=== PATIENT | male | born 1985 | race Caucasian/White ===

== ENCOUNTER 2025-07-13 00:59 | Day surgery (SDC) | payer BC, SELFPAY ==
--- NOTE | 2025-07-06 14:22 | SUR.PREOP ---
Addendum entered by Ailyn Michaels RN 07/06/25 14:49: Surgery time change to 07/13/25 at 1500. Be here at 1400. Pt notified.-frandy Original Note: [facility] has started construction of its new state of the art ER which will open Spring 2026. With this, we anticipate parking may be a challenge for some our surgical patients and families. Parking spaces are limited but are available for all Surgical, obstetrics, and ER patients sharing this lot. If you arrive and find you are having a hard time finding a parking space, please note that we understand the challenges, please drive around the hospital and park near Hospital Entrance 1. When you enter this entrance, you can ask a volunteer to direct or take you back to the surgical waiting area to check in. We appreciate everyone?s understanding of these expected challenges while we build for your future. Report to the Outpatient Waiting Room, entrance under the green pavilion located off [facility], at time _3pm_ on date _07/13/25 . Planned Procedure Time: __4pm__.? Time changes happen often and if your time is changed the preop area will call you the afternoon before. - You and your visitor will be asked to self-screen and do not enter if you have any COVID symptoms. Please call surgeon if you need to reschedule. - A mask is optional within the hospital at this time. Patients may have a light meal before procedure however do not eat or drink anything 2 hours prior to surgery. Take only the following medications with a SIP of water on the morning of surgery: All normal meds DO NOT STOP ANY OF YOUR OTHER PRESCRIPTION MEDICATIONS PRIOR TO SURGERY EXCEPT THE FOLLOWING Hold all vitamins and supplements for 3 days per anesthesiologist. Medications to discontinue per physician __none__ Date to take last dose____n/a Please no make-up, nail azeri, hairspray, perfume, deodorant, or body powder the day of surgery.? No jewelry (including any body piercings) or valuables the day of surgery, leave them at home.? Please take a shower or bath the night before, or the morning of, surgery with an antibacterial soap.? Wear comfortable, loose fitting clothing.?. - Jewelry must be removed prior to entering the operating room.? Rings and piercings that are not removed may be cut off. - The hospital will not accept responsibility for valuables.? - Please leave all valuables, including medications, at home the day of surgery. If you are going home after surgery, a licensed pizza delivery driver must drive you home.? - NO public transportation without another adult if you receive anesthesia. - We recommend that an adult stay with you for 24 hours following discharge. - We also recommend that you do not drive, make important decision, drink alcoholic beverages, or take any drugs that were not prescribed by your health care provider for at least 24 hours after your discharge time. Follow any additional instructions given to you from your surgeon. Telephone instructions given to __Eric and asked if any additional questions and then verbalized understanding. Patient advised to call surgeon office or pre surgery nurse liaison [phone] if any additional questions.
[2025-07-06 14:25] VITALS: BMI 29.2
--- NOTE | ~2025-07-13 | XR_ITS ---
XR fluoroscopy no charge Indication:left L4-5, L5-S1 transforaminal epidural injection TECHNIQUE: Fluoroscopy used during left L4-5, L5-S1 transforaminal epidural injection performed by [Milan Villasenor MD] on 07/13/2025. 17 seconds of fluoroscopy with 57 fluoroscopic images captured. FINDINGS: Correlate with procedure note. IMPRESSION: Fluoroscopy used during left L4-5, L5-S1 transforaminal epidural injection. Reviewed, dictated and finalized at location O. IMPRESSION: Fluoroscopy used during left L4-5, L5-S1 transforaminal epidural in jection.
[2025-07-13 13:30] VITALS: BP 132/90; PULSE 95; RESP 16; TEMP 37.1; O2SAT 97
--- NOTE | 2025-07-13 13:40 | P.HP_ITS ---
History of Present Illness History of Present Illness Consent: Risks, benefits, and alternatives have been discussed and questions answered. Patient agrees to proceed with procedure. Chief complaint: lumbosacral radiculopathy Narrative: Ciro Warren is a 39 year old male with chronic, recalcitrant and disabling left lumbosacral back and lower extremity pain secondary to lumbosacral radiculopathy with failure to respond to aggressive conservative measures inc luding PT, oral and topical analgesics, opioid and nonopioid analgesics, rest, time and activity/behavioral modification over the past 1-2 years who presents for lumbar transforaminal epidural steroid injection of the left L4-5, L5-S1 levels under fluoroscopic guidance and with contrast control. Review of Systems Review of Systems: All systems reviewed & are unremarkable except as noted in HPI and below PMFSH Past Medical History Medical History (Updated 04/09/25 @ 08:44 by Leo Mclaughlin, SOHAIL) Lumbar stenosis Dorsalgia Lumbar spondylosis Lumbar radiculopathy Chronic headaches Allergies Social History Social History (Updated 04/09/25 @ 08:13 by Elina Frank MA) Smoking status: Current every day smoker Tobacco type: e-cigarettes/vaping Additional smoking assessment comments: 2-3wks ago vaping is are. Alcohol intake: current Drinks per week: 2 Substance use: never Substance use type: does not use Living arrangements: with family Spiritual care concerns: No Meds Home Medications and Allergies Home Medications ?Medication ?Instructions ?Recorded ?Confirmed ?Type lisinopril 20 mg tablet 20 mg PO DAILY 04/09/2506/24 History cetirizine 10 mg tablet (24Hour 10 mg PO DAILY PRN all ergy symptoms 06/23/25 07/06/25 History Allergy) Allergies Allergy/AdvReac Type Severity Reaction Status Date / Time erythromycin base Allergy Intermediate Unknown Verified 07/06/25 14:24 penicillin G Allergy Intermediate Unknown Verified 07/06/25 14:24 Exam Narrative: The patient's physical exam is essentially unchanged from prior examination on 04/09/25. Specifically, patient demonstrates normal lung capacity, tidal volume and respiratory rate without wheezes, crackles, rales or rubs. Heart rate and rhythm are regular without murmurs, gallops or rubs. No JVD. Pulses 2+ globally without increasing peripheral edema. AAOx3 with no evidence of confusion, intoxication or altered mental state, NC/AT without acute distress or altered consciousness. Speech, cognition, mood, insight and judgment at baseline and w ithin normal limits. Assessment and Plan Assessment and plan (1) Lumbar radiculopathy: Code(s): M54.16 - Radiculopathy, lumbar region Status: Acute Assessment and Plan: proceed as planned with lumbar transforaminal epidural steroid injection of the left L4-5, L5-S1 levels under fluoroscopic guidance and with contrast control. (2) Lumbar stenosis: Code(s): M48.061 - Spinal stenosis, lumbar region without neurogenic claudication Status: Acute
--- NOTE | 2025-07-13 13:43 | WPDHPUPDATE1 ---
History and Physical Update Update Date/Time: 07/13/25 13:43 History and Physical has been reviewed, including an updated exam of the patient. There are NO changes in the patient's condition. Risks, benefits, and alternatives have been discussed and questions answered. Patient agrees to proceed with procedure.
--- NOTE | 2025-07-13 13:44 | W.PM.PROC2 ---
Procedure Note - Detailed Date of Procedure 07/13/25 Pre-op Diagnosis lumbosacral radiculopathy Post-op Diagnosis Same Procedure Performed Left Lumbar Transforaminal Epidural Steroid Injection under Fluoroscopic Guidance and with Contrast Control at L4-5, L5-S1. Surgeon Milan Villasenor MD Anesthesia Local Description of Procedure INFORMED CONSENT: Risks, benefits and alternatives to the procedure were discussed in detail with the patient who expressed explicit understanding and consent to proceed. Patient was informed verbally and in written form regarding the risks associated with the procedure including the low risk of serious infection, bleeding/bruising, allergic reaction, nerve or organ injury, paralysis, procedural site pain or discomfort, worsening pain and/or mobility, failure to treat and/or disfigurement. The patient expressed explicit understanding and consent to proceed. All materials required for the procedure were available prior to procedure start. Site and side was marked prior to procedure and confirmed in the presence of the patient. PROCEDURE IN DETAIL: The patient was brought to the procedural suite and placed in the prone position. Patient was made comfortable with use of pillows under the head/chest, hips and ankles. Skin overlying the injection site was prepared broadly with ChloraPrep applicator and draped in a sterile manner. Aseptic technique was employed throughout. The endplates of the vertebral body at the site of interest were aligned in the AP view. Ipsilateral oblique angulation was utilized to better visualize the neuroforamen of interest. Local anesthesia was established by infiltration with approximately 5 mL of 0.5% PF lidocaine via a 1-1/2 inch 27-gauge needle. A 22-gauge 5.0 inch Bigg (pencil point) spinal needle was advanced until the needle approached the 6 o'clock position on the pedicle just superior to the exiting nerve root. on the left at L4-5. Lateral view was utilized to confirm appropriate position of the needle tip within the superior and posterior portion of the respective foramen. In an AP view, 1 mL of Omnipaque 300 contrast medium was injected after negative aspiration for CSF, blood or other bodily fluid, showing appropriate neurogram without evidence of intravascular or intrathecal spread of contrast. Digital subtraction imaging was used with an additional 1ml of the same contrast medium to confirm absence of intravascular contrast spread. A 1mL solution containing 5 mg of dexamethasone was injected after negative repeat aspiration. Appropriate spread of the injectate was confirmed with washout of previously injected contrast. No parasthesias were elicited. Needle was removed completely intact without difficulty. The same exact procedure was repeated for all remaining levels on the ipsilateral side, left L5-S1 neuroforamen, modified as necessary to accommodate for the new target location with identical findings and results and no evidence of complication. Images were saved and documented in the patient chart. Patient's skin was cleaned and sterile bandage applied. The patient tolerated the procedure well. The patient was transported to the recovery area in stable condition where they were observed for an appropriate amount of time prior to discharge, without evidence of complication. The patient was instructed to avoid excessive activity for the next 48 hours, including climbing and frequent use of stairs. Showers only for 48 hours. They were instructed not to drive or operate heavy machinery for 24 hours. They are to monitor for severe headaches, fevers, chills, night sweats, erythema/swelling at the site or any other signs of infection, bleeding/bruising, bowel or bladder changes as well as new pain, weakness or numbness in the upper or lower extremity. Should they notice these changes, they are instructed to call our office immediately or report directly to the nearest Emergency Department if no answer or if after posted office hours. COMPLICATIONS: None COMMENTS: None CONTRAST WASTED: 26 mL Omnipaque 300. Complications No immediate complications Condition Stable Disposition Same day [facility] Billing Surgery - Charge Forward: Surgery Billing
[2025-07-13 14:01] VITALS: BMI 29.0
[2025-07-13 14:20] VITALS: BP 139/84; PULSE 90; RESP 20; O2SAT 97
[2025-07-13] MEDS: LIDOCAINE 2% PF LOCAL INJ 5 ML VIAL 1 ML INFILTRATE (14:22)
[2025-07-13] MEDS: DEXAMETHASONE SODIUM PHOSP/PF 10 MG/ML 1 ML VIAL INFILTRATE (14:23)
[2025-07-13] MEDS: LIDOCAINE 1% LOCAL INJ 10 ML VIAL INFILTRATE (14:25)
[2025-07-13 14:28] VITALS: BP 135/82; PULSE 95; RESP 20; O2SAT 96
[2025-07-13 14:31] VITALS: BP 121/79; PULSE 85; RESP 16; O2SAT 96
== END 2025-07-13 14:45 | disposition home or self-care (01) ==
PROVIDERS: Visit Provider Anesthesiology Pain Medicine
PROC: (CPT 64483; principal; 2025-07-13 14:30)
DX: M48.061 Spinal stenosis, lumbar region without neurogenic claudication (principal); R51.9 Headache, unspecified; F17.290 Nicotine dependence, other tobacco product, uncomplicated
CPT/HCPCS: 64483; 64484; 99199; J2003; Q9965

== ENCOUNTER 2025-09-08 00:51 | Day surgery (SDC) | payer BC, SELFPAY ==
[2025-09-07 08:07] VITALS: BMI 29.2
--- NOTE | 2025-09-07 08:14 | PC.NURSE ---
[facility] has started construction of its new state of the art ER which will open Spring 2026. With this, we anticipate parking may be a challenge for some our surgical patients and families. Parking spaces are limited but are available for all Surgical, obstetrics, and ER patients sharing this lot. If you arrive and find you are having a hard time finding a parking space, please note that we understand the challenges, please drive around the hospital and park near Hospital Entrance 1. When you enter this entrance, you can ask a volunteer to direct or take you back to the surgical waiting area to check in. We appreciate everyone?s understanding of these expected challenges while we build for your future. Report to the Outpatient Waiting Room, entrance under the green pavilion located off [address], at time _0900am on date _09/08/25 . Planned Procedure Time: ___1000am .? Time changes happen often and if your time is changed the preop area will call you the afternoon before. - You and your visitor will be asked to self-screen and do not enter if you have any COVID symptoms. Please call surgeon if you need to reschedule. - A mask is optional within the hospital at this time. Patients may have Light breakfast and fluids early am until 0800am then just sips of water if needed until time of surgery. No smoking, or chewing tobacco (or any form of nicotine). No chewing gum, candy or mints am of surgery. Take only the following medications with a SIP of water on the morning of surgery: ___All am meds ok DO NOT STOP ANY OF YOUR OTHER PRESCRIPTION MEDICATIONS PRIOR TO SURGERY EXCEPT THE FOLLOWING Hold all vitamins and supplements for 3 days per anesthesiologist. Medications to discontinue per physician NONE Date to take last dose____NONE Please no make-up, nail estonian, hairspray, perfume, deodorant, or body powder the day of surgery.? No jewelry (including any body piercings) or valuables the day of surgery, leave them at home.? Please take a shower or bath the night before, or the morning of, surgery with an antibacterial soap.? Wear comfortable, loose fitting clothing.? Children are encouraged to wear pajamas. - Jewelry must be removed prior to entering the operating room.? Rings and piercings that are not removed may be cut off. - The hospital will not accept responsibility for valuables.? - Please leave all valuables, including medications, at home the day of surgery. If you are going home after surgery, a licensed transit mixer driver must drive you home.? - NO public transportation without another adult if you receive anesthesia. - We recommend that an adult stay with you for 24 hours following discharge. - We also recommend that you do not drive, make important decision, drink alcoholic beverages, or take any drugs that were not prescribed by your health care provider for at least 24 hours after your discharge time. Pt cannot drive for [address] MEADOWS . Follow any additional instructions given to you from your surgeon. Telephone instructions given to __Patient and asked if any additional questions and then verbalized understanding. Patient advised to call surgeon office or pre surgery nurse liaison [phone] if any additional questions.
--- NOTE | ~2025-09-08 | XR_ITS ---
EXAM/PROCEDURE: XR fluoroscopy no charge HISTORY: INTRA-ARTICULAR STEROID INJECTION PEG SIJ COMPARISON: None available. TECHNIQUE: Fluoroscopic images for pain service. Fluoroscopy time: 30.2 seconds DAP: 2.1018 Slade per square centimeter IMPRESSION: Fluoroscopically assisted procedure. No radiologist present. See operative/procedure notes for complete evaluation. Reviewed, dictated and finalized at location A. [facility] [employer] IMPRESSION: Fluoroscopically assisted procedure. No radiologist present. See operative/proc edure notes for complete evaluation.
--- OUTSIDE RECORDS SUMMARY | 2025-09-08 00:53 | XMS_ITS | Clinical Summary ---
Author Organization [facility] lin Address [address] [place] [address] Care Team Providers Care Senior Drupal Developer Name Role Phone Unavailable Primary Care Provider Unavailabl e Social History Tobacco Use Types Packs/Day Years Used Date Smoking Tobacco: Never Assessed Sex and Gender Information Value Date Recorded Sex Assigned at Not on file Legal Sex Male 4:57 PM EDT Gender Identity Not on file Sexual Orientation Not on file Plan of Treatment Not on file Medical Devices Not on file
--- OUTSIDE RECORDS SUMMARY | 2025-09-08 00:54 | XMS_ITS | Clinical Summary ---
Author Organization [facility] at the Medical Office Building Address [address] [place] [id number] Care Team Providers Care Surgical Instrument Mechanic Name Role Phone Yonny Mcmillan Primary Care Provider [phone] Allergies Active Allergy Reactions Criticality Noted Date Comments Erythromycin Unknown 06/19/2019 Penicillin V Potassium Unknown 06/19/2019 Medications lisinopriL (PRINIVIL,ZESTRIL ) 20 mg tabletIndications :Primary hypertension Take 1 tablet (20 mg total) by mouth daily 90 tablet 3 11/20/2023 Active valACYclovir (VALTREX) 500 mg tablet TAKE 1 TABLET(500 MG) BY MOUTH TWICE DAILY FOR 3 DAYS 6 tablet 11 12/06/2023 Active Active Problems Problem Noted Date Diagnosed Date Astigmatism 07/26/2023 Myopia 07/26/2023 Low back pain 07/26/2023 Muscle spasm of back 07/26/2023 Nicotine dependence 07/26/2023 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 Patient given crutches to use. Weight bearing as tolerated. Waiver until March 01. F/u after PT if sxs persist/worsen. Essential (primary) hypertension 07/26/2023 Cervicalgia 07/07/2022 Pain in thoracic spine 07/07/2022 Left foot pain 02/02/2022 Assessment & Plan (02/02/2022 1:55 PM CDT): Ice, stretching, inserts and I am sending to podiatry Herpes dermatitis 07/22/2019 Routine general medical exam ination at a health care facility 07/16/2019 Assessment & Plan (07/26/2023 1:12 PM CDT): HEALTHCARE MAINTENANCE updated, HPV discussed Assessment & Plan (01/03/2022 2:59 PM CDT): Healthcare maintenance updated Primary hypertension 01/10/2017 Assessment & Plan (07/26/2023 1:12 PM CDT): Images from the original note were not included. This is a stable chronic condition. Monitor blood pressure, call if out of parameters as we discussed. Low sodium and caffeine diet. baby asa as discussed if applicable. Diet, exercise and weight reduction. Labs as ordered. F/U routine Assessment & Plan (02/02/2022 1:55 PM CDT): Images from the original note were not included. This is a stable chronic condition. Monitor blood pressure, call if out of parameters as we discussed. Low sodium and caffeine diet. baby asa as discussed if applicable. Diet, exercise and weight reduction. Labs as ordered. F/U routine Assessment & Plan (01/03/2022 2:58 PM CDT): This is a stable chronic condition. Monitor blood pressure, call if out of parameters as we discussed. Low sodium and caffeine diet. baby asa as discussed if applicable. Diet, exercise and weight reduction. Labs as ordered. F/U routine Secondary hypertension 01/10/2017 High blood triglycerides 08/14/2016 Assessment & Plan (07/26/2023 1:12 PM CDT): Continue diet and exercise, labs as ordered Assessment & Plan (02/02/2022 1:55 PM CDT): Healthy diet and exercise Assessment & Plan (01/03/2022 2:58 PM CDT): Patient had labs done recently he will give me a copy Immunizations Immunization Administration Dates Next Due Anthrax 12/24/2021, 8,2016,07/08,11/24/2012,12/13/2011,07/12/2011 ,04/29/2011 H1N1 Inj 10/31/2009 Hep A, Adult 05/31/2008,11/13/2007 IPV 11/07/2007 Influenza LAIV (Nasal) 08/24/2015,2013,07/13/2012,04/29,06/25/2010,10/03/2009,07/23/2008 Influenza, Quadrivalent, María Elena l Culture-based MDCK, Preservative Free, Antibiotic Free, Intramuscular 09/22/2021 Influenza, Quadrivalent, Spl it, Preservative Free, Intramuscular 07/29/2020,07/22/2019,08/07/2018,06/03 Influenza, Split 11/07/2007 Influenza, Trivalent, Cell Culture-based MDCK, Preservative Free, Antibiotic Free, Intramuscular 09/22/2021,09/29/2017 Influenza, Trivalent, IM (MDV) 07/03/2013 Influenza, Unspecified 07/26/2023(Deferr ed: Patient decision),07/25/2022,09/22/2021,2018 Meningococcal Conjugate (Menveo) 01/23/2020 Meningococcal MCV4P (Menactra) 11/07/2007 PPD TEST 04/27/2012,11/10/2007 Smallpox 04/29/2011 TD Preservative Free 11/07/2007 Td, adsorbed 05/06/2013 Tdap 09/24/2017,12/13/2011 Typhoid Inactivated 12/24/2021, 9,2016,08/12,08/01/2011,05/31/2008 Varicella 07/22/2019(Deferred: History of disease),07/22/2019 Yellow Fever 02/03/2020 Surgical History Surgery Date Site/Laterality Comments HIP SURGERY LEG SURGERY ARM SURGERY TONSILLECTOMY Medical History Medical History Date Comments Hypertension Hyperlipidemia Family History * Patient is adopted Medical History Relation Name Comments No Known Problems Father No Known Problems Mother Relation Name Status Comments Father Alive Mother Alive Social History Tobacco Use Types Packs/Day Years Used Date Smoking Tobacco: Some Days Cigars Tobacco Cessation:Ready to Q uit: Not Asked; Counseling Given: Not Answered Alcohol Use Standard Drinks/Week Comments Yes 0 (1 standard drink = 0.6 oz pur e alcohol) AUDIT-C Answer Date Recorded Q1: How often do you have a drink containing alc ohol? Monthly or less 07/26/2023 Q2: How many drinks containi ng alcohol do you have on a typical day when you are drinking? 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 Gender Identity Male 01/03/2022 7:39 AM CDT Sexual Orientation Straight 01/03/2022 7: 39 AM CDT Last Filed Vital Signs Vital Sign Reading Time Taken Comments Blood Pressure 130/80 07/26/2023 12:28 PM CDT Pulse 86 07/26/2023 12:28 PM CDT Temperature 36.4 C (97.6 F) 07/26/2023 12:28 PM CDT Respiratory Rate 16 07/26/2023 12:28 PM CDT Oxygen Saturation 99% 07/26/2023 12:28 PM CDT Inhaled Oxygen Concentration - - Weight 101.2 kg (223 lb) 07/26/2023 12:28 PM CDT Height 180.3 cm (5' 11) 07/26/2023 12:28 PM CDT Body Mass Index 31.1 07/26/2023 12:28 PM CDT Plan of Treatment Health Maintenance Due Date Last Done Comments Hepatitis C Screening 1984 Hepatitis B Screening 2002 Pneumococcal vaccine <65 (1 of 2 - PCV) 12/08/2003 HPV Vaccines (1 - 3-dose SCD M series) 12/08/2011 Depression Screening 07/26/2024 07/26/2023, 01/03/2022, 07/22/2019 Regular Well Visit/Exam 18-64 07/26/2024, 01/03/2022, 07/22/2019 Covid-19 Vaccine (4 - 2024-2 6 season) 2025 08/25/2021, 12/24/2020, 12/05/2020 Influenza Vaccine (#1) 2025 , 09/22/2021, 09/22/2021, Additional history exists DTaP/Tdap/Td Vaccine (4 - Td or Tdap) 09/24/2027 09/24/2017, 05/06/2013, 12/13/2011, Additional history exists Varicella Vaccines Discontinued 07/22/2019 Insurance [facility] Care Teams Surgical Instrument Mechanic Relationship Specialty Start Date End Date Yonny Mcmillan PA PCP - General Family Medicine 06/19/19
--- OUTSIDE RECORDS SUMMARY | 2025-09-08 00:54 | XMS_ITS | Encounter Summary ---
Author Organization [facility] Address [address] [place] [id number] Care Team Providers Care Rumper Name Role Phone Non-Staff, Provider Primary Care Provider Nishi stewart Encounter Details Date Type Department Care Team (Late st Contact Info) Description 05/26/2025 City Notes Message Enc [place] Pre-Admission Testing [facility] [place] [address] [place], [facility] Provider Surgery instructions *Note: you can take Lisinopril day of surgery Social History Tobacco Use Types Packs/Day Years Used Date Smoking Tobacco: Light Smoker Cigars Smokeless Tobacco: Never Alcohol Use Standard Drinks/Week Comments Yes 0 (1 standard drink = 0.6 oz pur e alcohol) 1-2 drinks a month Sex and Gender Information Value Date Recorded Sex Assigned at Male 06/02/2025 5:50 AM CDT Legal Sex Male 6:21 PM CDT Gender Identity Not on file Sexual Orientation Not on file documented as of this encounter Plan of Treatment Not on file documented as of this encounter Visit Diagnoses Not on filedocumented in this encounter Care Teams Rumper Relationship Specialty Start Date End Date Non-Staff, Provider PCP - General UNKNOWN PHYSICIAN SPECIALTY 06/02/25 documented as of this encounter
--- OUTSIDE RECORDS SUMMARY | 2025-09-08 00:54 | XMS_ITS | Clinical Summary ---
Author Organization [facility] Address [address] [place] [id number] Care Team Providers Care Manager Forms Name Role Phone Non-Staff, Provider Primary Care Provider Nishi labvictorino Allergies Active Allergy Reactions Criticality Noted Date Comments Erythromycin Unknown,Rash Low 11/13/2007 sob Penicillins Rash,Unknown Low 11/13/2007 sob Medications lisinopril 20 MG tablet Take 1 tablet (20 mg total) by mouth daily. 04/08/2021 Active azelastine (ASTELIN) 0.1 % nasal spray 2 sprays by Nasal route 2 (two) times daily. 05/07/2025 Active fexofenadine (ISAIAS ALLERGY) 180 MG tablet Take 1 tablet (180 mg total) by mouth daily. 03/16/2025 Active fluticasone propionate (FLONASE) 50 MCG/ACT nasal spray 2 sprays by Nasal route daily. 03/24/2025 Active HYDROcodone-acet aminophen (NORCO) 5-325 MG tabletIndication s:Acute Pain < 7 Day Supply Take 1 tablet by mouth every 6 (six) hours as needed for Pain. Indications : Acute Pain < 7 Day Supply 20 tablet 06/02/2025 Active ibuprofen (MOTRIN) 800 MG tablet Take 1 tablet (800 mg total) by mouth every 8 (eight) hours as needed for Pain. 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 High blood triglycerides 08/14/2016 Resolved Problems Problem Noted Date Diagnosed Date Resolved Date Routine general medical exam ination at a health care facility 07/16/2019 07/11/2021 Family History Medical History Relation Comments No Known Problems Father No Known Problems Mother No Known Problems Sister Relation Status Comments Father Alive Mother Alive Sister Social History Tobacco Use Types Packs/Day Years Used Date Smoking Tobacco: Former Cigars Smokeless Tobacco: Never Tobacco Cessation:Counseling Given: Not Answered Alcohol Use Standard Drinks/Week Comments Yes 0 (1 standard drink = 0.6 oz pur e alcohol) 1-2 drinks a week Sex and Gender Information Value Date Recorded Sex Assigned at Male 06/02/2025 5:50 AM CDT Legal Sex Male 6:21 PM CDT Gender Identity Not on file Sexual Orientation Not on file Last Filed Vital Signs Vital Sign Reading Time Taken Comments Blood Pressure 124/89 06/02/2025 9:40 AM CDT Pulse 72 06/02/2025 9:40 AM CDT Temperature 36.1 C (97 F) 06/02/2025 9:40 AM CDT Respiratory Rate 16 06/02/2025 9:40 AM CDT Oxygen Saturation 100% 06/02/2025 9:40 AM CDT Inhaled Oxygen Concentration - - Weight 97.5 kg (214 lb 15.2 oz) 06/02/2025 6:30 AM CDT Height 182.9 cm (6') 06/02/2025 6:30 AM CDT Body Mass Index 29.15 06/02/2025 6:30 AM CDT Plan of Treatment Health Maintenance Due Date Last Done Comments Annual Physical 12/08/1987 Hepatitis C 2002 Hepatitis B Vaccines (1 of 3 - 19+ 3-dose series) 12/08/2003 HPV Vaccines (1 - 3-dose SCDM series) 12/08/2011 COVID-19 Vaccine ( season) 2025 08/25/2021, 12/24/2020, 12/05/2020 Influenza Adult (#1) 2025 08/27/2023, 07/25/2022, 09/22/2021, Additional history exists DTaP, Tdap and Td Vaccines (4 - Td or Tdap) 09/24/2027 09/24/2017, 05/06/2013, 12/13/2011, Additional history exists Hepatitis A Vaccines Aged Out 05/31/2008, 11/13/19 08 No longer eligible based on patient's age to complete this topic Meningococcal Vaccine Aged Out 01/23/2020, 008 No longer eligible based on patient's age to complete this topic Meningococcal B Vaccine Aged Out No l onger eligible based on patient's age to complete this topic Pneumococcal Vaccine: Pediatrics (0 to 5 Years) and At-Risk Patients (6 to 49 Years) Aged Out No longer eligible based on patient's age to complete this topic RSV Immunizations Under 20 Months Aged Out No longer eligible based on patient's age to complete this topic Insurance [facility] Advance Directives * Full Code (Latest Code Status on File) Date Activated Date Inactivated Comments 06/02/2025 9:04 AM 06/02/2025 12:09 PM Care Teams Manager Forms Relationship Specialty Start Date End Date Non-Staff, Provider PCP - General UNKNOWN PHYSICIAN SPECIALTY 06/02/25
--- NOTE | 2025-09-08 08:23 | P.OP_ITS ---
Procedure Note - Detailed Date of Procedure 09/08/25 Pre-op Diagnosis sacroiliitis Post-op Diagnosis Same Procedure Performed Bilateral Sacroiliac Joint Steroid Injection under Fluoroscopic Guidance and with Contrast Control. Surgeon Milan Villasenor MD Unit Manager [employer] None Anesthesia Local Description of Procedure INFORMED CONSENT: Risks, benefits and alternatives to the procedure were discussed in detail with the patient who expressed explicit understanding and consent to proceed. Patient was informed verbally and in written form regarding the risks associated with the procedure including the low risk of serious infection, bleeding/bruising, allergic reaction, nerve or organ injury, paralysis, procedural site pain or discomfort, worsening pain and/or mobility, failure to treat and/or disfigurement. The patient expressed explicit understanding and consent to proceed. All materials required for the procedure were available prior to procedure start. Site and side were marked prior to procedure and confirmed in the presence of the patient. PROCEDURE IN DETAIL: The patient was brought to the procedural suite and placed in the prone position. Patient was made comfortable with use of pillows under the head/chest, hips and ankles. Skin overlying the injection site on the affected side(s) was prepared broadly with ChloraPrep applicator and draped in a sterile manner. Aseptic technique was used throughout. The right SI joint was identified in the AP view and contralateral oblique angulation with caudal tilt was utilized to optimize visualization of the inferior and medial joint line representing the posterior portion of the joint. Local anesthesia was established by infiltration with approximately 5 mL of 2% lidocaine via a 1-1/2 inch 27-gauge needle. A 22-gauge 3.5 inch Quincke spinal needle was advanced until the needle entered the inferior third of the joint space approximately 1cm cephalad from its most inferior point. In the AP view, 0.5 mL of Omnipaque 300 contrast medium was injected after negative aspiration for CSF, blood or other bodily fluid, showing appropriate intra-articular spread of contrast without evidence of intravascular, perineural or intrathecal placement. A 1.5 mL solution containing 5 mg of dexamathasone in 0.5% PF bupivacaine was injected after repeat negative aspiration. Appropriate spread of the injectate was confirmed with washout of previous injected contrast. No parasthesias were elicited. Needle was removed completely intact without difficulty. The same exact procedure was repeated for all remaining levels on the contralateral side, left SI joint, modified as necessary to accommodate for the new target location with identical findings/results and no evidence of complication. Images were saved and documented in the patient chart. Patient's skin was cleansed and sterile bandage applied. The patient tolerated the procedure well. The patient was transported to the recovery area in stable condition where they were observed for an appropriate amount of time prior to discharge, without evidence of complication. The patient was instructed to avoid excessive activity for the next 48 hours, including climbing and frequent use of stairs. Showers only for 48 hours. They were instructed not to drive or operate heavy machinery for 24 hours. They are to monitor for severe headaches, fevers, chills, night sweats, erythema/swelling at the site or any other signs of infection, bleeding/bruising, bowel or bladder changes as well as new pain, weakness or numbness in the upper or lower extremity. Should they notice these changes, they are instructed to call our office immediately or report directly to the nearest Emergency Department if no answer or if after posted office hours. COMPLICATIONS: None COMMENTS: None CONTRAST WASTED: 29mL Omnipaque 300. Complications No immediate complications Condition Stable Disposition Same day [facility] Billing Surgery - Charge Forward: Surgery Billing
--- NOTE | 2025-09-08 08:23 | WPDHPUPDATE1 ---
History and Physical Update Update Date/Time: 09/08/25 08:23 History and Physical has been reviewed, including an updated exam of the patient. There are NO changes in the patient's condition. Risks, benefits, and alternatives have been discussed and questions answered. Patient agrees to proceed with procedure.
[2025-09-08 09:30] VITALS: BP 116/78; PULSE 95; RESP 16; TEMP 36.4; O2SAT 97
[2025-09-08 09:50] VITALS: BP 133/81; PULSE 90; RESP 16; O2SAT 97
[2025-09-08] MEDS: dexAMETHasone SOD PHOS INJ 10 MG/ML 1 ML VIAL IM (09:58)
[2025-09-08] MEDS: BUPivacaine HCL 0.5% 10 ML AMP 5 ML INFILTRATE (09:59)
[2025-09-08 10:00] VITALS: BP 144/86; PULSE 92; RESP 16; O2SAT 97
[2025-09-08 10:07] VITALS: BP 126/89; PULSE 86; O2SAT 97
== END 2025-09-08 10:33 | disposition home or self-care (01) ==
PROVIDERS: Visit Provider Anesthesiology Pain Medicine
PROC: (CPT 27096; principal; 2025-09-08 10:00)
DX: M46.1 Sacroiliitis, not elsewhere classified (principal)
CPT/HCPCS: 27096; 99199; J1100; Q9965